=== PATIENT | male | born 1995 | race Hispanic/Latino ===

== ENCOUNTER 2017-09-11 12:28 | Emergency (ER) | payer BC ==
--- NOTE | 2017-09-11 13:23 | RAD ---
CHEST 2 VIEWS: Date: 09/11/17 COMPARISON: 05/31/14. HISTORY: Cough. Flu-like symptoms x2 days. FINDINGS: Normal cardiac silhouette. Pulmonary vessels and hilum are normal. No mass. No consolidation. No pne umothorax. No osseous abnormalities. IMPRESSION: No acute cardiopulmonary process. POS: [facility]
== END 2017-09-11 14:00 | disposition home or self-care (01) ==
LOC: ERS 12:28
DX: J01.90 Acute sinusitis, unspecified (principal); F90.9 Attention-deficit hyperactivity disorder, unspecified type
CPT/HCPCS: 71020

== ENCOUNTER 2019-05-01 17:24 | Emergency (ER) | payer BC ==
[2019-05-01] MEDS ORDERED: Ketorolac Tromethamine 60 MG/2 ML VIAL ONE (17:47)
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
== END 2019-05-01 18:18 | disposition home or self-care (01) ==
LOC: ERS 17:24
DX: S16.1XXA Strain of muscle, fascia and tendon at neck level, initial encounter (principal); S20.212A Contusion of left front wall of thorax, initial encounter; F90.9 Attention-deficit hyperactivity disorder, unspecified type; V89.2XXA Person injured in unspecified motor-vehicle accident, traffic, initial encounter
CPT/HCPCS: 71045; J1885

== ENCOUNTER 2019-06-08 11:06 | Emergency (ER) | payer BC | END 2019-06-08 12:08 | disposition home or self-care (01) | LOC: ERS 11:06 | DX: L30.9 Dermatitis, unspecified (principal); F90.9 Attention-deficit hyperactivity disorder, unspecified type | CPT/HCPCS: 99282 ==